=== PATIENT | male | born 1960 | race African-American/Black ===

== ENCOUNTER 2019-02-08 09:48 | Emergency (ER) | payer MEDICARE, MEDICAID ==
[~2019-02-08] VITALS: Ht 170.2 cm; Wt 62.6 kg
[2019-02-08] VITALS (12 sets, daily range): BP systolic 133–173; BP diastolic 64–87
[2019-02-08] MEDS ORDERED: SODIUM CHLORIDE 0.9% 1,000 ML IV ONE ×2 (09:59)
[2019-02-08] MEDS ORDERED: MORPHINE SULFATE 4 MG/ML SYR/VIAL IV ONE (10:00)
[2019-02-08] MEDS ORDERED: ONDANSETRON HCL 4 MG/2 ML VIAL IV ONE ×2 (10:00→14:00)
[2019-02-08] MEDS ORDERED: DONNATAL 5ml ORAL Elix (BELLADONNA ALK-PHENOBARB) PO ONE (10:15)
[2019-02-08] MEDS ORDERED: LIDOCAINE VISCOUS 2% 15ML UD PO ONE (10:15)
[2019-02-08] MEDS ORDERED: ALUM & MAG HYDROX-SIMETH LIQ(MAALOX) 30 ML PO ONE (10:15)
[2019-02-08 10:21] LABS: Urine Bacteria NONE SEEN /hpf (None Seen); Urine Blood Negative /uL (Negative); Urine Specific Gravity 1.009 (1.001-1.035); Urine WBC 1 /hpf (0 - 3)
[2019-02-08 10:48] LABS: White Blood Cell 9.5 10^3/uL (4.4-10.8)
[2019-02-08 10:49] LABS: Hematocrit 18.9 % (41.0-53.0); Mean Corpuscular Hemoglobin 17.9 pg (28.0-32.0); Mean Corpuscular Volume 63.9 fL (80.0-100.0); Red Blood Cells 2.96 10^6/uL (4.5-5.90)
[2019-02-08 10:55] LABS: Red Cell Distribution Width 29.1 % (11.8-14.3)
[2019-02-08 10:57] LABS: Hemoglobin 5.3 g/dL (13.5-17.5); Platelet Count (auto) 835 10^3/uL (140-450)
[2019-02-08 10:58] LABS: Albumin 3.7 g/dL (3.4-5.0); Band Neutrophils % (manual) 0; Basophils % (manual) 0 (0.0-2.0); Blast Cells 0; Calcium 8.5 mg/dL (8.5-10.1); Metamyelocytes % 0; Myelocytes % 0; Potassium 3.7 mmol/L (3.5-5.1); Promyelocytes % 0; Reactive Lymphocytes 0
[2019-02-08 11:01] LABS: BUN/Creatinine Ratio 14.4; Bilirubin, Total 0.3 mg/dL (0.2-1.0); Total Protein 7.2 g/dL (6.4-8.2)
[2019-02-08 12:39] LABS: Eosinophils % (manual) 3 (0-7); Lymphocytes % (manual) 15 (10.0-50.0); Monocytes % (manual) 7 (0-12)
[2019-02-08] MEDS ORDERED: IOHEXOL 300 MG/ML 100ML BOTTLE IJ ONE (13:26)
[2019-02-08] MEDS ORDERED: ONDANSETRON HCL 4 MG/2 ML VIAL ONE (13:52)
[2019-02-08] MEDS ORDERED: MORPHINE SULF INJ 2 MG/ML SYRINGE 1ML ONE (13:52)
[2019-02-08] MEDS ORDERED: MORPHINE SULF INJ 2 MG/ML SYRINGE 1ML IV ONE (14:00)
[2019-02-08] MEDS ORDERED: FAMOTIDINE INJECTION 40 MG in SODIUM CHL 0.9% 100 ML IV ONE (14:30)
[2019-02-08] MEDS ORDERED: amLODIPine BESYLATE 5 MG TAB PO ONE (16:15)
[2019-02-08] MEDS ORDERED: LEVETIRACETAM 500 MG TAB PO ONE (16:15)
[2019-02-08] MEDS ORDERED: SODIUM CHLORIDE 0.9% 1,000 ML IV SCH (16:50)
[2019-02-08] MEDS ORDERED: traMADol HCL 50 MG TAB PO PRN (17:00)
[2019-02-08] MEDS ORDERED: TEMAZEPAM 15 MG CAP PO PRN (17:00)
[2019-02-08] MEDS ORDERED: LORazepam 0.5 MG TAB PO PRN (17:00)
[2019-02-08] MEDS ORDERED: LACTULOSE 20Gm/30ML SOLN PO PRN (17:00)
[2019-02-08] MEDS ORDERED: PROMETHAZINE HCL 25 MG/ML 1ML IV PRN (17:00)
[2019-02-08] MEDS ORDERED: NITROGLYCERIN 0.4 MG SL TAB SL PRN (17:00)
[2019-02-08] MEDS ORDERED: hydrALAZINE HCL 20 MG/ML VL IV PRN (17:00)
[2019-02-08] MEDS ORDERED: ACETAMINOPHEN 500 MG TAB PO PRN (17:00)
[2019-02-08] MEDS ORDERED: MORPHINE SULF INJ 2 MG/ML SYRINGE 1ML IV PRN ×2 (17:00→17:45)
[2019-02-08] MEDS ORDERED: PANTOPRAZOLE 40 MG TAB PO SCH (22:00)
[2019-02-09] MEDS ORDERED: amLODIPine BESYLATE 5 MG TAB PO SCH (10:00)
[2019-02-09] MEDS ORDERED: LEVETIRACETAM 500 MG TAB PO SCH (10:00)
== END 2019-02-08 18:05 | disposition left against medical advice (07) ==
LOC: ER 09:48 → EDBD 09:48 → UNDOADMIN 16:54 → OVERFLOW 16:54
DX: D64.9 Anemia, unspecified (principal); R42 Dizziness and giddiness; K57.90 Diverticulosis of intestine, part unspecified, without perforation or abscess without bleeding; K76.89 Other specified diseases of liver; N28.1 Cyst of kidney, acquired; N20.0 Calculus of kidney; N40.0 Benign prostatic hyperplasia without lower urinary tract symptoms; I10 Essential (primary) hypertension; F17.210 Nicotine dependence, cigarettes, uncomplicated; F12.10 Cannabis abuse, uncomplicated
CPT/HCPCS: 36415; 36430; 71045; 74176; 74177; 80053; 81001; 83690; 84484; 85007; 85018; 85027; 85045; 86850; 86900; 86901; 86920; 93005; 96361; 96365; 96375; 96376; 99285; J2270; J2405; J3490; J7030; P9016; Q9967